=== PATIENT | male | born 1975 ===

== ENCOUNTER 2017-01-25 07:14 | Emergency (ER) | payer MEDICAID, OTHER ==
[2017-01-25 07:25] VITALS: BMI 30.2
[2017-01-25] MEDS ORDERED: Sodium Chloride 0.9% 1,000 ML IV STA (07:25)
[2017-01-25] MEDS ORDERED: Pantoprazole 40 MG in Sodium Chloride 0.9% 100 ML IV STA (07:25)
[2017-01-25 07:28] VITALS: RESP 18
--- NOTE | 2017-01-25 07:30 | ED PDOC ---
Arrival/HPI - General Chief Complaint: Abdominal Pain Time Seen by Provider: 01/25/17 07:18 Historian: Patient, Spouse - History of Present Illness Time/Duration: Other (Early this morning) Symptom Onset: Sudden Symptom Course: Unchanged Quality: Aching Severity Level: Severe Activities at Onset: Sleeping Associated Symptoms (Text): 01/25/17 07:27 Patient was awoken from sleep at approximately 1 AM today with severe epigastric and right upper quadrant abdominal pain. No radiation of the pain. No fever or chills. No nausea vomiting or diarrhea. No dyspnea. No genitourinary symptoms. He has never had this before. reports that he has been having some stomach issues over the last several weeks. He ate a meal of [place] food last evening. Family/Social History - Physician Review Nursing Documentation Reviewed: Yes Family/Social History: Unknown Family HX Smoking Status: Never Smoked Hx Alcohol Use: Yes Frequency of alcohol use: Socially Hx Substance Use: No Allergies/Home Meds Allergies/Adverse Reactions: Allergies No Known Allergies Allergy (Verified 01/25/17 07:30) Home Medications: Home Meds Medication Instructions Recorded Confirmed Escitalopram [Lexapro] 20 mg PO DAILY 01/25/17 01/25/17 Levothyroxine [Synthroid] 100 mcg PO DAILY 01/25/17 01/25/17 MetFORMIN [glucoPHAGE] 1 tab PO BID 01/25/17 01/25/17 Simvastatin 20 mg PO DAILY 01/25/17 01/25/17 valACYclovir [Valtrex] 1 gm PO DAILY 01/25/17 01/25/17 Review of Systems - Physician Review All systems were reviewed & negative as marked: Yes - Review of Systems Constitutional: Normal Respiratory: Normal Cardiovascular: Normal Gastrointestinal: Abdominal Pain. absent: Constipation, Diarrhea, Nausea, Vomiting Genitourinary Male: absent: Dysuria, Frequency, Hematuria Musculoskeletal: absent: Back Pain Neurological: absent: Headache, Dizziness Physical Exam Vital Signs Temp Pulse Resp BP Pulse Ox 01/25/17 08:56 68 18 142/78 97 01/25/17 08:53 69 18 142/78 97 01/25/17 07:23 97.2 F L 69 18 175/95 H 98 Temperature: Afebrile Blood Pressure: Hypertensive Pulse: Regular Respiratory Rate: Normal Appearance: Positive for: Well-Appearing, Non-Toxic, Uncomfortable Pain Distress: Moderate Mental Status: Positive for: Alert and Oriented X 3 - Systems Exam Head: Present: Atraumatic, Normocephalic Pupils: Present: PERRL Extroacular Muscles: Present: EOMI Conjunctiva: Present: Normal Mouth: Present: Moist Mucous Membranes Pharnyx: No: ERYTHEMA, EXUDATE, TONSILS ENLARGED Neck: Present: Normal Range of Motion Respiratory/Chest: Present: Clear to Auscultation, Good Air Exchange, Decreased Breath Sounds. No: Respiratory Distress, Accessory Muscle Use Cardiovascular: Present: Regular Rate and Rhythm, Normal S1, S2. No: Murmurs Abdomen: Present: Tenderness, Normal Bowel Sounds, Guarding (Moderate right upper quadrant tenderness and voluntary guarding). No: Distention, Peritoneal Signs, Rebound Back: Present: Normal Inspection Upper Extremity: Present: Normal Inspection. No: Cyanosis, Edema Lower Extremity: Present: Normal Inspection. No: Edema Neurological: Present: GCS=15, CN II-XII Intact, Speech Normal, Motor Func Grossly Intact Skin: Present: Warm, Dry, Normal Color. No: Rashes Psychiatric: Present: Alert, Oriented x 3, Normal Insight, Normal Concentration Medical Decision Making ED Course and Treatment: 01/25/17 07:29 EKG shows normal sinus rhythm rate approximately [address] or T-wave changes 01/25/17 08:46 Almost complete relief of his pain 01/25/17 09:18 Ultrasound of the abdomen is read by the radiologist shows no cholelithiasis with a normal common bile duct. Fatty liver. Discussed in detail with Dr. Figueroa who is covering for PMD and will sign out to . Follow-up in office for GI referral. Discharged home accompanied by . Follow up in ER as needed. - Lab Interpretations Lab Results: 01/25/17 07:40 01/25/17 07:40 Lab Results 01/25/17 07:40: Sodium 137, Potassium 3.6, Chloride 99, Carbon Dioxide 28, Anion Gap 14, BUN 12, Creatinine 0.7, Est GFR ( Amer) > 60, Est GFR (Non- Af Amer) > 60, Random Glucose 255 H, Calcium 9.0, Total Bilirubin 0.8, AST 44, ALT 81 H, Alkaline Phosphatase 67, Lactate Dehydrogenase 407, Total Creatine Kinase 137, Troponin I < 0.01, Total Protein 7.7, Albumin 4.4, Globulin 3.3, Albumin/Globulin Ratio 1.3, Amylase 63, Lipase 80 01/25/17 07:40: PT 10.2, INR 0.94, APTT 27.8 01/25/17 07:40: WBC 8.1, RBC 4.89, Hgb 14.7, Hct 40.8 L, MCV 83.4, MCH 30.1, MCHC 36.0, RDW 13.2, Plt Count 196, MPV 10.8, Gran % 60.6, Lymph % (Auto) 30.3, [place]arro % (Auto) 5.4, Eos % (Auto) 3.3, Baso % (Auto) 0.4, Gran # 4.93, Lymph # 2.5 , Navarro # 0.4, Eos # 0.3, Baso # 0.03 - RAD Interpretation Radiology Orders: 01/25/17 07:25 ABDOMEN COMPLETE [US] Stat 01/25/17 07:26 CHEST ONE VIEW [RAD] Stat Chest 1 view shows no infiltrate or effusion or cardiomegaly E Business Manager: ED Physician - Medication Orders Current Medication Orders: Sodium Chloride (Sodium Chloride 0.9%) 1,000 mls @ 100 mls/hr IV .Q10H STA Stop: 01/25/17 17:24 Last Admin: 01/25/17 07:44 Dose: 100 mls/hr Discontinued Medications Ketorolac Tromethamine (Toradol) 30 mg IVP STAT STA Stop: 01/25/17 07:26 Last Admin: 01/25/17 07:43 Dose: 30 mg Pantoprazole Sodium (Protonix Inj) 40 mg IVP STAT STA Stop: 01/25/17 07:34 Last Admin: 01/25/17 07:44 Dose: 40 mg Disposition/Present on Arrival - Present on Arrival Any Indicators Present on Arrival: No History of DVT/PE: No History of Uncontrolled Diabetes: No Urinary Catheter: No History of Decub. Ulcer: No - Disposition Have Diagnosis and Disposition been Completed?: Yes Diagnosis: Abdominal pain Disposition: HOME/ ROUTINE Disposition Time: 09:19 Patient Plan: Discharge Condition: IMPROVED Discharge Instructions (ExitCare): Acute Abdominal Pain (ED) Additional Instructions: Avoid fatty foods. Follow-up with PMD. Follow up in ER as needed. Prescriptions: Pantoprazole Sodium [Protonix] 40 mg PO DAILY #20 ect Referrals: Jose Elias Huggins MD [Primary Care Provider] - Follow up with primary Forms: WORK NOTE
[2017-01-25 07:47] LABS: ADD MANUAL DIFF? NO
[2017-01-25 07:52] LABS: BASO # 0.03 K/mm3 (0.0-2.0); BASO % 0.4 % (0.0-3.0); EOS # 0.3 (0.0-0.7); EOS % 3.3 % (1.5-5.0); GRAN # 4.93 (1.4-6.5); GRAN % 60.6 % (50.0-68.0); HEMATOCRIT 40.8 % (42.0-52.0); LYMPH # 2.5 (1.2-3.4); LYMPH % 30.3 % (22.0-35.0); MEAN CELL VOLUME 83.4 fL (80.0-105.0); MEAN CORPUSCULAR HEMOGLOBIN 30.1 pg (25.0-35.0); MEAN PLATELET VOLUME 10.8 fl (7.0-11.0); MONO # 0.4 (0.1-0.6); MONO % 5.4 % (1.0-6.0); PLATELET COUNT 196 10^3/uL (120.0-450.0); RED CELL DISTRIBUTION WIDTH 13.2 % (11.5-14.5); WHITE BLOOD COUNT 8.1 10^3/ul (4.5-11.0)
[2017-01-25 08:02] LABS: INR 0.94 (0.93-1.08); PARTIAL THROMBOPLASTIN TIME 27.8 Seconds (23.7-30.8)
[2017-01-25 08:04] LABS: ALB/GLOB RATIO 1.3 (1.1-1.8); ALKALINE PHOSPHATASE 67 U/L (38-133); ALT/SGPT 81 U/L (7-56); AMYLASE 63 U/L (35-125); AST/SGOT 44 U/L (15-59); BILIRUBIN,TOTAL 0.8 mg/dL (0.2-1.3); BLOOD UREA NITROGEN 12 mg/dL (7-21); CARBON DIOXIDE 28 mmol/L (21-33); CHLORIDE 99 mmol/L (98-107); GFR AFRICAN-AMERICAN > 60; GLUCOSE,RANDOM 255 mg/dL (70-110); LIPASE 80 U/L (23-300); POTASSIUM 3.6 mmol/L (3.6-5.0); SODIUM 137 mmol/L (132-148); TOTAL PROTEIN 7.7 g/dL (5.8-8.3)
[2017-01-25 08:15] LABS: TROPONIN I < 0.01 ng/mL
--- NOTE | 2017-01-25 09:16 | US ---
HISTORY: RUQ pain COMPARISON: None. TECHNIQUE: Sonographic evaluation of the abdomen. FINDINGS: LIVER: Measures 17.0 cm. Diffusely increased echogenicity of the liver parenchyma. Consistent with fatty infiltration. Smooth contour. No mass. No biliary ductal dilatation. GALLBLADDER: Unremarkable. No gallstones. COMMON BILE DUCT: Measures 5 mm. No stones. No dilatation. PANCREAS: Unremarkable as visualized. No mass. No ductal dilatation. RIGHT KIDNEY: Measures 11.8cm. Normal echogenicity. No calculus, mass, or hydronephrosis. LEFT KIDNEY: Measures 11.7cm. Normal echogenicity. No calculus, mass, or hydronephrosis. SPLEEN: Minimal splenomegaly. Spleen measures 13.3 cm in greatest dimension. AORTA: No aneurysmal dilatation. IVC: Unremarkable. OTHER FINDINGS: None. IMPRESSION: Fatty infiltration of the liver. Minimal splenomegaly. No evidence of cholelithiasis or cholecystitis.
[2017-01-25 09:26] LABS: URINE BILIRUBIN NEGATIVE (NEGATIVE); URINE BLOOD SMALL (NEGATIVE); URINE GLUCOSE (UA) >=1000 mg/dL (NEGATIVE); URINE KETONE NEGATIVE (NEGATIVE); URINE LEUKOCYTE ESTERASE NEGATIVE Leu/uL (NEGATIVE); URINE PROTEIN NEGATIVE mg/dL (<30 mg/dL); URINE UROBILINOGEN 0.2 E.U./dL (<1 E.U./dL)
[2017-01-25 09:27] LABS: URINE APPEARANCE CLEAR (CLEAR); URINE COLOR YELLOW (YELLOW)
[2017-01-25 09:33] VITALS: BP 141/84; PULSE 70; TEMP 98; O2SAT 99
[2017-01-25 09:45] LABS: URINE BACTERIA FEW (NEG); URINE WBC 0 - 2 /hpf (0-6)
--- NOTE | 2017-01-25 12:14 | RAD ---
PROCEDURE: CHEST RADIOGRAPH, 1 VIEW HISTORY: ap COMPARISON: None available. FINDINGS: LUNGS: Clear. PLEURA: No pneumothorax or pleural fluid seen. CARDIOVASCULAR: Normal. OSSEOUS STRUCTURES: No significant abnormalities. VISUALIZED UPPER ABDOMEN: Normal. OTHER FINDINGS: None. IMPRESSION: No active disease.
--- NOTE | 2017-01-26 01:35 | CARD ---
APPROVED REPORT EKG Measurement Heart [id number] <Conclusion> Normal sinus rhythm Normal ECG
== END 2017-01-25 09:31 | disposition home or self-care (01) ==
LOC: ED 07:14
DX: R10.9 Unspecified abdominal pain (principal)
CPT/HCPCS: 71010; 76700; 80053; 81001; 82150; 82550; 83615; 83690; 84484; 85025; 85610; 85730; 93005; 96374; 96375; 99283; C9113; J1885; J7040